=== PATIENT | female | born 1955 | race Caucasian/White ===

== ENCOUNTER 2023-11-14 07:00 | Day surgery (SDC) | payer MEDICARE ==
[~2023-11-14] VITALS: Ht 154.9 cm; Wt 63.5 kg
[~2023-11-14 07:00] MED LIST: DICYCLOMINE HYD10 MG PO; DILTIAZEM HCL60 MG PO; FLEXERIL5 M1 PO; ISOSORB MONO30 MG PO; LOSARTAN POTAS100 MG PO; MOTRIN800 MG PO; NITROGLYCERIN0.3 MG
[2023-11-14] MEDS ORDERED: LACTATED RINGER'S 1,000 ML IV ONE (07:01)
[2023-11-14] MEDS ORDERED: FAMOTIDINE 10MG/ML 2ML SDV IV ONE (07:01)
[2023-11-14] MEDS ORDERED: STERILE WATER FOR IRRIGATION 1,000 ML BTL IR ONE (09:13)
[2023-11-14 09:42] VITALS: BP 166/84
[2023-11-14] MEDS ORDERED: GLYCOPYRROLATE 0.2 MG/ML IV ONE (14:36)
[2023-11-14] MEDS ORDERED: LABETALOL HCL 100 MG/20 ML VIAL IV ONE (14:36)
[2023-11-14] MEDS ORDERED: PROPOFOL 500 MG/50 ML VIAL IV ONE (14:55)
[2023-11-14] MEDS ORDERED: LIDOCAINE HCL 2% 2ML SDV IV ONE (14:55)
== END 2023-11-14 09:34 | disposition home or self-care (01) ==
LOC: ENDO 07:00
PROVIDERS: ATTEND Surgery
PROC: 0DJD8ZZ Inspection of Lower Intestinal Tract, Via Natural or Artificial Opening Endoscopic (ICD-10-PCS; principal; 2023-11-14)
DX: Z12.11 Encounter for screening for malignant neoplasm of colon (principal); K57.30 Diverticulosis of large intestine without perforation or abscess without bleeding; K64.8 Other hemorrhoids; I10 Essential (primary) hypertension; E11.9 Type 2 diabetes mellitus without complications